=== PATIENT | male | born 1990 ===

== ENCOUNTER 2022-08-25 15:12 | Outpatient (REF) | payer MEDICAID, OTHER, SELFPAY ==
[2022-08-25 17:39] LABS: Free T4 (Free Thyroxine) 0.89 ng/dL (0.71-1.85); Thyroid Stimulating Hormone 0.23 uIU/mL (0.32-4.0)
[2022-08-25 17:55] LABS: T4 Thyroxine 7.3 ug/dL (4.5-12.0)
== END 2022-08-25 15:13 | disposition home or self-care (01) ==
LOC: HO.HHCL 15:12
PROVIDERS: Visit Provider Student in an Organized Health Care Education/Training Program
DX: R94.6 Abnormal results of thyroid function studies (principal)
CPT/HCPCS: 36415; 84436; 84439; 84443

== ENCOUNTER 2023-02-10 12:39 | Outpatient (REF) | payer MEDICAID, OTHER, SELFPAY ==
[2023-02-10 14:35] LABS: Free T4 (Free Thyroxine) 0.89 ng/dL (0.71-1.85); T4 Thyroxine 7.7 ug/dL (4.5-12.0); Thyroid Stimulating Hormone 0.53 uIU/mL (0.32-4.0)
[2023-02-11 08:29] LABS: Triiodothyronine T3 Total 118 ng/dL (76-181)
== END 2023-02-10 12:40 | disposition home or self-care (01) ==
LOC: HO.HHCL 12:39
PROVIDERS: Visit Provider Student in an Organized Health Care Education/Training Program
DX: E05.90 Thyrotoxicosis, unspecified without thyrotoxic crisis or storm (principal)
CPT/HCPCS: 36415; 84436; 84439; 84443; 84480

== ENCOUNTER 2023-11-01 17:54 | Outpatient (REF) | payer MEDICAID, OTHER, SELFPAY ==
[2023-11-02 03:30] LABS: CT PCR NOT DETECTED (Not Detect.); NG PCR NOT DETECTED (Not Detect.)
[2023-11-06 10:38] LABS: C. Trachomatis RNA TMA, Throat NOT DETECTED; N. gonorrhoeae RNA TMA, Throat NOT DETECTED
[2023-11-06 14:39] LABS: C.Trachomatis RNA TMA, Rectal NOT DETECTED; N.Gonorrhoeae RNA TMA, Rectal NOT DETECTED
== END 2023-11-01 17:55 | disposition home or self-care (01) ==
LOC: HO.HHCLNP 17:54
PROVIDERS: Visit Provider Student in an Organized Health Care Education/Training Program
DX: Z00.00 Encounter for general adult medical examination without abnormal findings (principal); Z72.53 High risk bisexual behavior
CPT/HCPCS: 87491; 87591

== ENCOUNTER 2023-11-07 11:37 | Outpatient (REF) | payer MEDICAID, OTHER, SELFPAY ==
[2023-11-07 13:31] LABS: Hematocrit 45.6 % (42.0-52.0); Mean Corpuscular HGB Conc 32.9 g/dl (31.0-36.0); Mean Corpuscular Hemoglobin 29.5 pg (27.0-33.0); Mean Corpuscular Volume 89.8 fL (80.0-98.0); Mean Platelet Volume 9.4 fL (9.4-12.4); Platelet Count 323 X10*3/uL (160-400); Red Blood Count 5.08 X10*6/uL (4.60-5.80); Red Cell Distribution Width 13.5 % (11.0-16.0); White Blood Count 12.3 X10*3/uL (4.8-10.8)
[2023-11-07 13:51] LABS: Alanine Aminotransferase 26 U/L (0-40); Albumin Level 3.8 g/dL (3.5-5.0); Alkaline Phosphatase 52 U/L (39-117); Anion Gap 9 (12-20); Aspartate Amino Transferase 23 U/L (5-37); Bilirubin Total 0.3 mg/dL (0.0-1.0); Blood Urea Nitrogen 11 mg/dL (9-16); Carbon Dioxide 27 mmol/L (22-29); Chloride 106 mmol/L (96-108); Cholesterol 219 mg/dL (<200); Estimated Glomerular Filt Rate > 60; Glucose Random 95 mg/dL (60-115); HDL Cholesterol 51 mg/dL (>40); LDL Cholesterol Calculated 148 mg/dL (<100); Potassium 4.4 mmol/L (3.3-5.1); Sodium 138 mmol/L (135-145); Total Protein 6.6 g/dL (6.5-8.0); Triglycerides 100 mg/dL (<150)
[2023-11-07 14:13] LABS: Thyroid Stimulating Hormone 0.24 uIU/mL (0.32-4.0)
[2023-11-07 16:25] LABS: Estimated Average Glucose 97 mg/dL; Hemoglobin A1C 131.3987 umol/L
[2023-11-08 08:31] LABS: Hepatitis A Antibody IgG Nonreactive (Nonreactive); ~Hepatitis A Antibody IgG 0.27 S/CO (0.00-0.99)
[2023-11-08 08:32] LABS: HBS Num1 10.26 mIU/mL (0-7.99); HBc Num1 0.16 S/CO (0.00-0.79); HBsAGNum1 0.33 S/CO (0.00-0.99); HIV AB/AG Nonreactive (Nonreactive); HIV Num 1 0.05 S/CO (0.00-0.99); Hepatitis B Core Antibody Nonreactive (Nonreactive); Hepatitis B Surface Antigen Negative (Negative); ~HepC Num1 0.14 S/CO (0.00-0.79); ~Hepatitis C Antibody Nonreactive (Nonreactive)
[2023-11-08 08:48] LABS: Syphilis Screen Nonreactive (Nonreactive)
[2023-11-08 09:27] LABS: HBS Num2 10.42 mIU/mL (0-7.99); HBS Num3 10.17 mIU/mL (0-7.99); ~Hepatitis B Surface Antibody GRAYZONE (Nonreactive)
[2023-11-13 16:02] LABS: Thyroid Stimulating Immunoglob <89 % baseline (<140)
== END 2023-11-07 11:38 | disposition home or self-care (01) ==
LOC: HO.HHCL 11:37
PROVIDERS: Visit Provider Student in an Organized Health Care Education/Training Program
DX: Z00.00 Encounter for general adult medical examination without abnormal findings (principal)
CPT/HCPCS: 36415; 80053; 80061; 83036; 84439; 84443; 84445; 85027; 86704; 86706; 86708; 86780; 86803; 87340; 87389

== ENCOUNTER 2023-12-04 11:03 | Outpatient (REF) | payer MEDICAID, OTHER, SELFPAY ==
[2023-12-04 13:23] LABS: MANUAL DIFF FLAG NO
[2023-12-04 13:37] LABS: Basophils Percent Auto 0.3 % (0-2); Eosinophils Absolute Auto 0.2 X10*3/uL (0.0-0.4); Eosinophils Percent Auto 1.9 % (0-4); Hematocrit 44.2 % (42.0-52.0); Hemoglobin 14.3 g/dl (14.0-18.0); Imm Gran Abs Auto 0.09 X10*3/uL (0.00-0.03); Imm Gran Pct Auto 0.9 % (0.0-0.4); Lymphocytes Absolute Auto 2.1 X10*3/uL (1.2-4.9); Lymphocytes Percent Auto 20.9 % (20-40); Mean Corpuscular HGB Conc 32.4 g/dl (31.0-36.0); Mean Corpuscular Hemoglobin 29.4 pg (27.0-33.0); Mean Corpuscular Volume 90.9 fL (80.0-98.0); Mean Platelet Volume 9.7 fL (9.4-12.4); Monocytes Absolute Auto 0.9 X10*3/uL (0.1-1.2); Monocytes Percent Auto 8.4 % (2-11); Neutrophils Absolute Auto 6.8 x10*3/uL (2.0-8.3); Neutrophils Percent Auto 67.6 % (45-73); Platelet Count 329 X10*3/uL (160-400); Red Blood Count 4.86 X10*6/uL (4.60-5.80); Red Cell Distribution Width 13.4 % (11.0-16.0); White Blood Count 10.1 X10*3/uL (4.8-10.8)
[2023-12-04 14:39] LABS: Free T4 (Free Thyroxine) 0.91 ng/dL (0.71-1.85)
[2023-12-05 04:09] LABS: HBc Num1 0.15 S/CO (0.00-0.79); HBsAGNum1 0.29 S/CO (0.00-0.99); Hepatitis B Core Antibody Nonreactive (Nonreactive); Hepatitis B Surface Antigen Negative (Negative)
[2023-12-05 11:03] LABS: HBS Num1 11.78 mIU/mL (0-7.99)
[2023-12-05 12:00] LABS: HBS Num2 11.87 mIU/mL (0-7.99); HBS Num3 11.27 mIU/mL (0-7.99); ~Hepatitis B Surface Antibody GRAYZONE (Nonreactive)
== END 2023-12-04 11:04 | disposition home or self-care (01) ==
LOC: HO.HHCL 11:03
PROVIDERS: Visit Provider Student in an Organized Health Care Education/Training Program
DX: R79.89 Other specified abnormal findings of blood chemistry (principal); Z72.53 High risk bisexual behavior
CPT/HCPCS: 36415; 84439; 84443; 85025; 86704; 86706; 87340